=== PATIENT | male | born 1990 | race Hispanic/Latino ===

== ENCOUNTER 2024-08-13 08:22 | Emergency (ER) | payer SELFPAY ==
[~2024-08-13] VITALS: Ht 170.2 cm; Wt 70.3 kg
--- NOTE | 2024-08-13 08:57 | ERN ---
General Chief Complaint: Eye Problems Stated Complaint: BILATERAL EYE DISCHARGE Time Seen by MD: 08:35 History of Present Illness Initial Comments 33-year-old male who presents for bilateral eye redness and itchy. He has bilateral conjunctival injection for about a week now. No vision changes. No systemic illness. Patient went to [facility] twice, he was currently taking erythromycin ointment and Polytrim. He was not followed up with an leather tooler. No contact lenses. He reports that it started in one eye and spread to the next. Allergies: Coded Allergies: No Known Allergies (Unverified Allergy, Unknown, 08/13/24) Past Medical History Past Medical History: Asthma Past Surgical History: None ROS Dictation CONSTITUTIONAL: No chills, no fever, no weakness, no diaphoresis, no malaise. HEAD/FACE: No signs of trauma. EENT: Bilateral eye redness and irritation RESPIRATORY: No cough, no orthopnea, no SOB, no stridor, no wheezing. CARDIOVASCULAR: No chest pain, no edema, no palpitations, no syncope. GASTROINTESTINAL/ABDOMINAL: No abdominal pain, no constipation, no diarrhea, no nausea, no vomiting. GENITOURINARY: No abnormal discharge, no dysuria, no frequent urination, no hematuria. No complaints of pain in the genitals. MUSCULOSKELETAL: No back pain, no gout, no joint pain, no joint swelling, no muscle pain, no muscle stiffness, no neck pain. INTEGUMENTARY: No change in color, no change in hair/nails, no dryness, no lesion, no lumps, no rash. NEUROLOGICAL/PSYCH: No anxiety, not depressed, no emotional problem, no headache, no numbness, no pre-existing deficit, no history of seizures, no tremors, no weakness. HEMATOLOGIC/LYMPHATIC: Not anemic, no history of blood clots, no apparent bleeding, no bruising, glands not swollen. All Systems Negative, Except as Noted. Physical Exam Physical Exam Dictation VITAL SIGNS: Reviewed. GENERAL APPEARANCE: Alert, oriented x3, no acute distress, obese. HEAD AND FACE: Non-traumatic. EYES: PERRL, conjunctival injection EARS: Pinnas intact and no signs of trauma or erythema. Ear canals clear and no discharge. TMs no erythema. NOSE: No discharge, no bleeding. OROPHARYNX: Mouth normal, teeth no caries, tongue pink. Pharynx clear, no erythema. Tonsils no exudates, no abscesses noted. Mucous membrane moist. NECK: Supple, non-tender, no thyromegaly, no masses, no JVD, no bruits. BREAST: Deferred. CHEST: No tenderness, no crepitus, no paradoxical movement, no retractions. LUNGS: Clear, well-ventilated, symmetric, no rales, no wheezing, no rhonchi, no stridor, good breath sounds bilaterally. HEART: Regular rate, regular rhythm, no murmur, no gallops. VASCULAR: No peripheral edema. ABDOMEN: Soft, positive bowel sounds, nondistended, no guarding, nontender, no rebound, no masses no hepatomegaly, no splenomegaly, no Pozo's sign, no hernias. RECTAL: Deferred. GENITAL: Deferred. NEUROLOGICAL: Normal speech, gross motor function intact, gross sensory function intact. MUSCULOSKELETAL: Neck nontender, full range of motion, back nontender, full ran ge of motion. EXTREMITIES: Nontender, full range of motion. SKIN: Color pink, dry, no turgor, no rash, no lacerations, no abrasions, no contusions. LYMPHATICS: Deferred. MDM CC: Bilateral red eyes Historian: Patient Comorbidities: None Limitations by social determinants of health: Uninsured Vital signs stable Differential diagnosis: Viral versus bacterial conjunctivitis Clinically patient was bilateral conjunctivitis. He was already taking erythromycin and Polytrim. No indication for labs or studies no toxicity no systemic illness We will DC the ophthalmology follow up ED Course Vital Signs Date Time Temp Pulse Resp B/P (MAP) Pulse Ox O2 Delivery O2 Flow Rate FiO2 08/13/24 08:24 98.1 117 18 127/81 98 Room Air 0 DX & DISP Disposition: Discharge Departure Impression: Primary Impression: Bilateral conjunctivitis Condition: Stable Additional Instructions: You have bilateral conjunctivitis. As we discussed this is often caused by a virus or bacteria. Continue with the erythromycin ointment. You can apply this at night. Continue with the Polytrim drops. You can continue with the pain eye drops as needed. Keep your eyes covered glasses. Wash her hands frequently. This is very c ontagious. I recommend that you follow up with an eye doctor (leather tooler). Try the [facility] at [address], [place] [address]. Referrals: SELF,REFERRAL (PCP) ZACHARIAH ROBLEDO DO Aug 13, 2024 08:57
[2024-08-13 09:06] VITALS: BP 122/79; PULSE 104; RESP 16; TEMP 98.1; O2SAT 97
--- NOTE | 2024-08-13 09:10 | NUR ---
DEPARTED AT THIS TIME. UNABLE TO DEPART ON Victiv DUE TO THIRD LIBERTARIAN REGISTRATION STAFF ON ACCOUNT.
== END 2024-08-13 09:15 | disposition home or self-care (01) ==
LOC: EDH 08:22
DX: H10.9 Unspecified conjunctivitis (principal); J45.909 Unspecified asthma, uncomplicated
CPT/HCPCS: 99281